=== PATIENT | female | born 1960 | race Caucasian/White ===

== ENCOUNTER 2017-03-31 09:22 | Emergency (ER) | payer OTHER ==
[~2017-03-31] VITALS: Ht 157.5 cm; Wt 70.0 kg
[2017-03-31] MEDS ORDERED: morphine 4 MG/ML VIAL IV STA (09:28)
[2017-03-31] MEDS ORDERED: SOD CHLORIDE 0.9% 1,000 ML IV STA (09:28)
[2017-03-31] MEDS ORDERED: FAMOTIDINE 20 MG INJ IV STA (09:28)
[2017-03-31] MEDS ORDERED: ONDANSETRON 4 MG INJ IV STA (09:28)
[2017-03-31 09:52] VITALS: Ht 157.5 cm; Wt 70.0 kg
[2017-03-31 10:03] LABS: BASOPHILS % 0.3 % (0.0-2.0); EOSINOPHILS % 0.3 % (0.0-7.0); HEMATOCRIT 39.5 % (37.0-47.0); HEMOGLOBIN 13.1 g/dl (12.0-16.0); LYMPHOCYTES # 2.1 10^3/ul (0.8-2.9); LYMPHOCYTES % 21.1 % (15.0-51.0); MEAN CORPUSCULAR HEMOGLOBIN 29.7 pg (29.0-33.0); MEAN CORPUSCULAR HGB CONC 33.2 g/dl (32.0-37.0); MEAN CORPUSCULAR VOLUME 89.6 fl (82.0-101.0); MEAN PLATELET VOLUME 9.9 fl (7.4-10.4); MONOCYTE # 0.4 10^3/ul (0.3-0.9); MONOCYTES % 4.2 % (0.0-11.0); NEUTROPHIL # 7.5 10^3/ul (1.6-7.5); NEUTROPHILS % 73.7 % (39.0-77.0); PLATELET COUNT 237 10^3/UL (140-415); RED BLOOD COUNT 4.41 10^6/ul (4.20-5.40); RED CELL DISTRIBUTION WIDTH 12.9 % (11.5-14.5); WHITE BLOOD COUNT 10.1 10^3/ul (4.8-10.8)
[2017-03-31 10:07] LABS: ADD UMIC NO; UR ASCORBIC ACID 20 mg/dL (NEGATIVE); UR BILIRUBIN (Dip) NEGATIVE (NEGATIVE); UR BLOOD (Dip) NEGATIVE (NEGATIVE); UR CLARITY CLEAR (CLEAR); UR COLOR YELLOW (YELLOW); UR GLUCOSE (Dip) NEGATIVE (NEGATIVE); UR KETONES (Dip) 2+ mg/dL (NEGATIVE); UR LEUKOCYTE ESTERASE (Dip) NEGATIVE Leu/ul (NEGATIVE); UR NITRITE (Dip) NEGATIVE (NEGATIVE); UR SPECIFIC GRAVITY (Dip) 1.018 (1.003-1.030); UR TOTAL PROTEIN (Dip) NEGATIVE (NEGATIVE); UR UROBILINOGEN (Dip) NEGATIVE (NEGATIVE)
--- NOTE | 2017-03-31 10:10 | RADRPT ---
PROCEDURE: CT ABDOMEN AND PELVIS WITHOUT CONTRAST. CLINICAL INDICATION: Right lower quadrant abdominal pain TECHNIQUE: CT scan of the abdomen and pelvis without contrast was performed on a multidetector hig h-resolution CT scanner. The patient was scanned without intravenous contrast. Coronal and sagittal reformatted images were obtained from the axial source images. Images were reviewed on a high-resol [employer] PACS workstation. The total exam CTDI equals 6.2 mGy and the total exam DLP equals 315.5 mGy-c m. One or more of the following dose reduction techniques were used: Automated exposure control. Adjustment of the mA and/or kV according to patient size. Use of iterative reconstruction technique. DICOM images are available COMPARISON: None FINDINGS: CT abdomen: The lung bases are clear. The heart size is within limits. There is no significant pericardial effus ion. Hepatic morphology is within normal limits. No gross contour deforming masses. The gallbladder is wi thin normal limits. No evidence of intrahepatic or extrahepatic biliary dilatation. The spleen and pancreas are within normal limits. Both adrenal glands are within normal limits. Both kidneys are in normal anatomic position. No evidence of obstruction or hydronephrosis. No gross renal/ureteric calculi. The visualized GI tract demonstrate normal caliber loops of small and large bowel. No evidence of sergei wel obstruction. The appendix is within normal limits. Fluid-filled loops of small and large bowel n oted. There are several shoddy right lower quadrant mesenteric lymph nodes. The unenhanced aorta is unremarkable. There is no significant retroperitoneal lymphadenopathy. CT pelvis: The bladder is within normal limits. The rectosigmoid colon is within limits. No significant free fl uid. No significant pelvic lymphadenopathy. The visualized osseous structures demonstrate multilevel degenerative disease of the spine. IMPRESSION: 1. No evidence of acute intra-abdominal/pelvic inflammatory process. No evidence of bowel obstructio n. The appendix is within normal limits. 2. Fluid filled loops of small large bowel suggestive of gastroenteritis and watery diarrhea. Severa l shoddy right lower quadrant mesenteric lymph nodes, which may represent mesenteric lymphadenitis v ersus reactive lymph nodes. 3. No free fluid or free air. No gross focal fluid collections. Otherwise, remainder of the unenhanc ed CT scan abdomen/pelvis is unremarkable. RPTAT: AAPP Steven Morris, Physician Date Time Electronically viewed and signed by Steven Morris Physician on 03/31/2017 10:10 JL/
[2017-03-31 10:24] LABS: ALBUMIN 4.7 g/dl (3.3-4.9); ALBUMIN/GLOBULIN RATIO 1.2; BILIRUBIN,INDIRECT 1.3 mg/dl (0-1.1); BILIRUBIN,TOTAL 1.3 mg/dl (0.2-1.3); CALCIUM 9.7 mg/dl (8.4-10.2); CREATININE 0.57 mg/dl (0.44-1.00); POTASSIUM 4.3 mmol/L (3.5-5.1); TOTAL PROTEIN 8.6 g/dl (6.1-8.1)
--- NOTE | 2017-03-31 10:43 | ERD ---
ER Documentation Chief Complaint Chief Complaint BIB RA FOR EVAL OF ABD PAIN N/V FROM CLINIC. HPI This is a 56-year-old female who presents to the emergency room after being brought in by EMS from a health clinic for evaluation of abdominal cramping, nausea, vomiting and diarrhea. The patient states that she has had abdominal cramping nausea vomiting and diarrhea for approximately 4 days duration. The patient states that her abdominal pain is localized to the lower portion of her abdomen described as a crampy sensation with no radiation. She states that bowel movements do improve her symptoms slightly, she denies any fevers or chills or chest pain associated with her symptoms and rates her cramping abdominal pain as a 3 out of 10 currently. The patient came to the ER for further evaluation ROS All systems reviewed and are negative except as per history of present illness. Allergies Allergies: Coded Allergies: clindamycin (Verified Allergy, Unknown, rash, 03/31/17) metronidazole (Verified Allergy, Unknown, rash, 03/31/17) PMhx/Soc Hx Alcohol Use: No Hx Substance Use: No Hx Tobacco Use: No Smoking Status: Current every day smoker Physical Exam Vitals Vital Signs Date Time Temp Pulse Resp B/P Pulse Ox O2 Delivery O2 Flow Rate FiO2 03/31/17 09:52 98.5 60 17 127/65 99 Physical Exam INITIAL VITAL SIGNS: Reviewed by me GENERAL: The patient is well developed and appropriate for usual state of health in no apparent distress HEENT: Pupils equal, round, and reactive to light. EOMI. There is no scleral icterus. NECK: C-spine is soft and supple, there is no meningismus. There is no cervical lymphadenopathy. LUNGS: Clear to auscultation bilaterally. There are no rales, wheezes or rhonchi. HEART: Regular rate and rhythm, no murmurs, clicks, rubs or gallops. ABDOMEN: Suprapubic tenderness to palpation, negative McBurney point tenderness , negative Nation sign, non-distended. There are bowel sounds in all four quadrants. No rebound or guarding. EXTREMITIES: There is no peripheral cyanosis or edema. No focal swelling or erythema. NEUROLOGICAL: The patient moves all four extremities with 5/5 strength. Cranial nerves II - XII are intact. Normal gait. Alert and oriented SKIN: There is no apparent rash or petechiae. HEME/LYMPHATIC: There is no evidence of excessive bruising or lymphedema. PSYCHIATRIC: The patient does not appear anxious or depressed. Result Diagram: 03/31/1745 03/31/17944 Results 24 hrs Laboratory Tests Test 03/31/17 09:40 03/31/17 09:45 Urine Color YELLOW Urine Clarity CLEAR Urine pH 7.0 Urine Specific [place] 1.018 Urine Ketones 2+mg/dL Urine Nitrite NEGATIVEmg/dL Urine Bilirubin NEGATIVEmg/dL Urine Urobilinogen NEGATIVEmg/dL Urine Leukocyte Esterase NEGATIVELeu/ul Urine Hemoglobin NEGATIVEmg/dL Urine Glucose NEGATIVEmg/dL Urine Total Protein NEGATIVEmg/dl White Blood Count 10.110^3/ul Red Blood Count 4.4110^6/ul Hemoglobin 13.1g/dl Hematocrit 39.5% Mean Corpuscular Volume 89.6fl Mean Corpuscular Hemoglobin 29.7pg Mean Corpuscular Hemoglobin Concent 33.2g/dl Red Cell Distribution Width 12.9% Platelet Count 78270^3/UL Mean Platelet Volume 9.9fl Neutrophils % 73.7% Lymphocytes % 21.1% Monocytes % 4.2% Eosinophils % 0.3% Basophils % 0.3% Nucleated Red Blood Cells % 0.0/100WBC Neutrophils # 7.510^3/ul Lymphocytes # 2.110^3/ul Monocytes # 0.410^3/ul Eosinophils # 0.010^3/ul Basophils # 0.010^3/ul Nucleated Red Blood Cells # 0.010^3/ul Sodium Level 144mmol/L Potassium Level 4.3mmol/L Chloride Level 105mmol/L Carbon Dioxide Level 27mmol/L Anion Gap 16 Blood Urea Nitrogen 13mg/dl Creatinine 0.57mg/dl Glucose Level 126mg/dl Calcium Level 9.7mg/dl Total Bilirubin 1.3mg/dl Direct Bilirubin 0.00mg/dl Indirect Bilirubin 1.3mg/dl Aspartate Amino Transf (AST/SGOT) 26IU/L Alanine Aminotransferase (ALT/SGPT) 30IU/L Alkaline Phosphatase 120IU/L Troponin I < 0.012ng/ml Total Protein 8.6g/dl Albumin 4.7g/dl Globulin 3.90g/dl Albumin/Globulin Ratio 1.20 Lipase 79U/L Current Medications Medications (Trade) Dose Ordered Sig/Martina Route PRN Reason Start Time Stop Time Status Last Admin Dose Admin Sodium Chloride (NS) 1,000 ml @ 1,000 mls/hr Q1H STAT IV 03/31/17 09:28 03/31/17 10:27 DC 03/31/17 09:58 Morphine Sulfate (morphine) 4 mg ONCE STAT IV 03/31/17 09:28 03/31/17 09:30 DC 03/31/17 09:58 Ondansetron HCl (Zofran Inj) 4 mg ONCE STAT IV 03/31/17 09:28 03/31/17 09:30 DC 03/31/17 09:58 Famotidine (Pepcid Iv) 20 mg ONCE STAT IV 03/31/17 09:28 03/31/17 09:30 DC 03/31/17 09:58 Procedures/MDM CT abdomen pelvis without: 1. No evidence of acute intra-abdominal/pelvic inflammatory process. No evidence of bowel obstruction. The appendix is within normal limits. 2. Fluid filled loops of small large bowel suggestive of gastroenteritis and watery diarrhea. Several shoddy right lower quadrant mesenteric lymph nodes, which may represent mesenteric lymphadenitis versus reactive lymph nodes. 3. No free fluid or free air. No gross focal fluid collections. Otherwise, remainder of the unenhanced CT scan abdomen/pelvis is unremarkable. EKG: Rate/Rhythm: [Normal Sinus Rhythm] QRS, ST, T-waves: [No changes consistent w/ acute ischemia] Impression: [No evidence of ischemia or arrhythmia] This is a 56-year-old female who presents to the ER for evaluation of nausea, vomiting, diarrhea. On examination the patient was in no acute distress, she was afebrile and hemodynamically stable. The patient did have suprapubic tenderness to palpation on my examination and did vomit once since being in the emergency room. Given her symptoms the patient underwent a CT of the abdomen and pelvis which does not show any acute obstructions. The patient had lab work done and a urinalysis which does show ketones in the urine consistent with mild dehydration likely secondary to her nausea, vomiting and diarrhea. Her nausea is controlled in the emergency room with Zofran. The patient was given Pepcid, and 1 L of fluids as well. When I reevaluated her she was sitting in bed in no acute distress. She is tolerating a p.o. challenge at this time and will be discharged home with a prescription for Zofran and Pepcid. Smoking Cessation Therapy: Pt. was lectured for greater than 3 minutes on the health risks of continued smoking and the benefits of cessation. Departure Diagnosis: Primary Impression: Acute gastroenteritis Additional Impressions: Abdominal pain Mild dehydration Nausea vomiting and diarrhea Tobacco abuse Tobacco abuse counseling Condition: Stable AUGUSTINE GARCIA DO Mar 31, 2017 10:43
[2017-03-31] MEDS ORDERED: ONDA4TAB8 PO (10:44)
[2017-03-31] MEDS ORDERED: RANI150T9 PO (10:44)
[2017-03-31 11:10] VITALS: BP 94/52; PULSE 65; RESP 18; TEMP 98
== END 2017-03-31 11:11 | disposition home or self-care (01) ==
LOC: E/R 09:22
DX: K52.9 Noninfective gastroenteritis and colitis, unspecified (principal); E86.0 Dehydration; F17.210 Nicotine dependence, cigarettes, uncomplicated; Z71.6 Tobacco abuse counseling
CPT/HCPCS: 36415; 74176; 80053; 81003; 83690; 84484; 85025; 93005; 96374; 96375; J2270; J2405; J7030; Z7502; Z7610